=== PATIENT | male | born 1995 | race Caucasian/White ===

== ENCOUNTER 2021-04-04 21:24 | Emergency (ER) | payer OTHER ==
[2021-04-04 23:00] LABS: BASOPHIL 0.5 % (0-2); EOSINOPHIL 1.8 % (0-5); HGB 15.2 g/dl (13.2-18.0); LYMPHOCYTE 41.7 % (15-48); MCH 29.5 pg (25.0-31.0); MCHC 34.5 g/dL (32.0-36.0); MCV 85.3 fL (78.0-100.0); MONOCYTE 7.6 % (0-12); MPV 10.3 fL (6.0-9.5); NRBC 0; PLT 288 K/uL (150-400); RBC 5.16 M/uL (4.70-6.00); RDW 12.1 % (11.5-14.0); WBC 9.9 K/uL (4.0-10.5)
[2021-04-04 23:17] LABS: BUN 13 mg/dL (7-18); BUN/CREAT RATIO (CALC) 15.7 RATIO; CHLORIDE 103 mmol/L (98-107); CO2 (BICARBONATE) 26 mmol/L (21-32); CREATININE 0.83 mg/dL (0.67-1.17); GLUCOSE 89 mg/dL (74-106); POTASSIUM 3.5 mmol/L (3.5-5.1)
== END 2021-04-05 00:30 | disposition left against medical advice (07) ==
LOC: FER 21:24
PROVIDERS: Emergency Medicine Emergency Medical Services
DX: R07.89 Other chest pain (principal); R11.2 Nausea with vomiting, unspecified; R06.02 Shortness of breath; Z53.8 Procedure and treatment not carried out for other reasons
CPT/HCPCS: 36415; 80048; 84484; 85025; 93005

== ENCOUNTER 2021-10-24 20:26 | Emergency (ER) | payer OTHER ==
[2021-10-24 21:20] LABS: CORONAVIRUS 2019 SARS-COV-2 NEGATIVE (NEGATIVE); INFLUENZA A NAA NEGATIVE (NEGATIVE)
[2021-10-24 22:15] LABS: BASOPHIL 0.6 % (0-2); EOSINOPHIL 3.3 % (0-5); HCT 43.1 % (42.0-52.0); HGB 14.6 g/dl (13.2-18.0); LYMPHOCYTE 45.3 % (15-48); MCH 29.1 pg (25.0-31.0); MCHC 33.9 g/dL (32.0-36.0); MONOCYTE 6.8 % (0-12); MPV 10.1 fL (6.0-9.5); NEUTROPHIL 43.4 % (41-80); NRBC 0; PLT 279 K/uL (150-400); RBC 5.01 M/uL (4.70-6.00); WBC 8.1 K/uL (4.0-10.5)
[2021-10-24 22:31] LABS: BUN/CREAT RATIO (CALC) 16.7 RATIO; CREATININE 0.84 mg/dL (0.67-1.17); POTASSIUM 3.9 mmol/L (3.5-5.1)
[2021-10-24] MEDS ORDERED: KEPPRA250 MG PO (23:34)
== END 2021-10-24 23:55 | disposition home or self-care (01) ==
LOC: FER 20:26
PROVIDERS: Nurse Practitioner Family
DX: R56.9 Unspecified convulsions (principal); Z20.822 Contact with and (suspected) exposure to COVID-19; Z28.310 Unvaccinated for COVID-19
CPT/HCPCS: 36415; 70450; 80048; 85025; U0002